=== PATIENT | female | born 1960 | race Caucasian/White ===

== ENCOUNTER 2018-01-29 07:22 | Emergency (ER) | payer OTHER ==
[2018-01-29] MEDS ORDERED: NS 0.9% 1000 ML* 1,000 ML IV ONE (07:33)
[2018-01-29] MEDS ORDERED: PROCHLORPERAZINE INJ 5 MG/ML 2 ML VIAL IV ONE (07:35)
[2018-01-29 07:53] LABS: ABS Basophils 0.1 10^3/ul (0-0.2); ABS Eosinophils 0.1 10^3/ul (0-0.6); ABS Lymphocytes 2.7 10^3/ul (1.0-4.8); ABS Monocytes 0.8 10^3/ul (0-0.8); ABS Neutrophils 10.6 10^3/ul (1.5-7.7); ABS Nucleated RBC 0 10^3/ul; Eosinophil % 0.5 % (0-6); Hematocrit 42 % (35-47); Hemoglobin 14.3 g/dl (12.0-16.0); Lymphocyte % 19.2 % (25-47); Mean Corpuscular HGB Conc 34 g/dl (31-36); Mean Corpuscular Hemoglobin 30 pg (27-31); Mean Corpuscular Volume 89 fL (80-97); Mean Platelet Volume 7.4 um3 (7.4-10.4); Nucleated Red Blood Cells % 0; Platelet Count 309 10^3/ul (150-450); Red Blood Count 4.71 10^6/ul (4.00-5.40); Red Cell Distribution Width 14 % (10.5-15); White Blood Count 14.3 10^3/ul (3.5-10.8)
[2018-01-29] MEDS ORDERED: HYDROmorphone INJ* 2 MG/ML CARPUJECT SYRINGE IV SLOW PU ONE (08:09)
[2018-01-29 09:23] VITALS: BP 121/74
--- NOTE | 2018-01-29 09:42 | ED ---
Nausea/Vomiting/Diarrhea HPI - HPI Summary HPI Summary: Patient is a 57-year-old female who presents emergency department for nausea and vomiting and abdominal pain started this morning. Patient and her who is present are currently visiting the area. Her notes that she has a history of cyclic vomiting syndrome and this happens occasionally. He states patient has had an extensive workup including endoscopy and colonoscopy for vomiting with no findings. Patient states symptoms today are her typical symptoms. She denies chest pain or shortness of breath or recent illness. Symptoms are moderate in severity. No current modifying factors. 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 Pain Intensity: 0 Pain Scale Used: 0-10 Numeric - Allergies/Home Medications Allergies/Adverse Reactions: Allergies Allergy/AdvReac Type Severity Reaction Status Date / Time morphine Allergy Nausea And Verified 01/29/18 07:29 Vomiting Home Medications: Home Medications Zofran Odt 4 mg PO PRN 01/29/18 [History] PMH/Surg Hx/FS Hx/Imm Hx Previously Healthy: Yes Infectious Disease History: No Infectious Disease History: Denies: Traveled Outside the [place] in Last 30 Days - Social History Occupation: Retired Lives: With Family Alcohol Use: Weekly Substance Use Type: Reports: None Smoking Status (MU): Current Every Day Smoker Review of Systems Constitutional: Negative Cardiovascular: Negative Respiratory: Negative Positive: Abdominal Pain, Vomiting, Nausea. Negative: Diarrhea All Other Systems Reviewed And Are Negative: Yes Physical Exam Triage Information Reviewed: Yes Vital Signs On Initial Exam: Initial Vitals Temp Pulse Resp BP Pulse Ox 96.7 F 72 20 143/97 100 01/29/18 07:25 01/29/18 07:25 01/29/18 07:25 01/29/18 07:25 01/29/18 07:25 Vital Signs Reviewed: Yes Appearance: Positive: Pain Distress - Pt. sitting up in bed dry heaving. Appears uncomfortable but nontoxic. Skin: Positive: Warm, Dry Head/Face: Positive: Normal Head/Face Inspection Eyes: Positive: Normal Neck: Positive: Supple Respiratory/Lung Sounds: Positive: Clear to Auscultation, Breath Sounds Present Cardiovascular: Positive: Normal, RRR Abdomen Description: Positive: Other: - Abd. is soft with mild diffuse tenderness. No peritoneal signs. Diagnostics - Vital Signs Vital Signs Temp Pulse Resp BP Pulse Ox 01/29/18 09:21 97.7 F 74 16 121/74 100 01/29/18 08:54 98 01/29/18 08:24 20 01/29/18 07:25 96.7 F 72 20 143/97 100 - Laboratory Lab Results: Lab Results 01/29/18 01/29/18 Range/Units 07:39 07:41 WBC 14.3 H (3.5-10.8) 10^3/ul RBC 4.71 (4.00-5.40) 10^6/ul Hgb 14.3 (12.0-16.0) g/dl Hct 42 (35-47) % MCV 89 (80-97) fL MCH 30 (27-31) pg MCHC 34 (31-36) g/dl RDW 14 (10.5-15) % Plt Count 309 (150-450) 10^3/ul MPV 7.4 (7.4-10.4) um3 Neut % (Auto) 73.8 (38-83) % Lymph % (Auto) 19.2 L (25-47) % [place] % (Auto) 5.6 (0-7) % Eos % (Auto) 0.5 (0-6) % Baso % (Auto) 0.9 (0-2) % Absolute Neuts (auto) 10.6 H (1.5-7.7) 10^3/ul Absolute Lymphs (auto) 2.7 (1.0-4.8) 10^3/ul Absolute Monos (auto) 0.8 (0-0.8) 10^3/ul Absolute Eos (auto) 0.1 (0-0.6) 10^3/ul Absolute Basos (auto) 0.1 (0-0.2) 10^3/ul Absolute Nucleated RBC 0 10^3/ul Nucleated RBC % 0 Sodium 139 (135-145) mmol/L Potassium 3.8 (3.5-5.0) mmol/L Chloride 106 (101-111) mmol/L Carbon Dioxide 23 (22-32) mmol/L Anion Gap 10 (2-11) mmol/L BUN 11 (6-24) mg/dL Creatinine 0.64 (0.51-0.95) mg/dL Est GFR ( Amer) 114.9 (>60) Est GFR (Non-Af Amer) 95.0 (>60) BUN/Creatinine Ratio 17.2 (8-20) Glucose 143 H (70-100) mg/dL Calcium 9.2 (8.6-10.3) mg/dL Total Bilirubin 0.40 (0.2-1.0) mg/dL AST 20 (13-39) U/L ALT 10 (7-52) U/L Alkaline Phosphatase 70 (34-104) U/L Total Protein 7.3 (6.4-8.9) g/dL Albumin 4.2 (3.2-5.2) g/dL Globulin 3.1 (2-4) g/dL Albumin/Globulin Ratio 1.4 (1-3) Lipase 59 (11.0-82.0) U/L Result Diagrams: 01/29/18 07:41 01/29/18 07:39 Lab Statement: Any lab studies that have been ordered have been reviewed, and results considered in the medical decision making process. Naus/Vom/Diarrhea Course/Dx - Course Course Of Treatment: Pt. presenting to the ER for N/V. She has a benign abd. exam. Vital signs are stable. Will check basic labs, iv fluids and antiemetic. WBC mildly elevated, suspect stress reaction. CMP unremarkable. Pt. still c/o pain and nausea. Pt.'s states that she has been seen many times for this before and dilaudid is the only medication that typically works. Pt. was given 1mg dilaudid and sxs improved. Pt. requesting to go home. To f.u with PCP. To return to ER if sxs change or worsen - Differential Dx/Diagnosis Differential Diagnoses - Female: Pancreatitis, Gerd, Gastroenteritis (Viral), Gastroenteritis (Bacterial), Vomiting, Dehydration Condition At Discharge: Good Discharge - Sign-Out/Discharge Documenting (check all that apply): Patient Departure - Discharge Plan Condition: Good Disposition: HOME Patient Education Materials: Cyclic Vomiting Syndrome (ED) Referrals: No Primary Care Phys,NOPCP [Primary Care Provider] - Additional Instructions: Follow up with your PCP Increase fluids Return to ER if symptoms change or worsen - Billing Disposition and Condition Condition: GOOD Disposition: Home
== END 2018-01-29 09:21 | disposition home or self-care (01) ==
LOC: ED 07:22
DX: R11.2 Nausea with vomiting, unspecified (principal); R10.9 Unspecified abdominal pain; F17.200 Nicotine dependence, unspecified, uncomplicated; Z88.5 Allergy status to narcotic agent
CPT/HCPCS: 36415; 80053; 83690; 85025; 96361; 96374; 96375; 99282; J0780; J1170